=== PATIENT | male | born 1995 | race Two or more races ===

== ENCOUNTER 2024-10-27 19:48 | Emergency (ER) | payer MEDICAID ==
[~2024-10-27] VITALS: Ht 167.6 cm; Wt 86.4 kg
[2024-10-27] MEDS ORDERED: HYDR-3686 PO (21:40)
[2024-10-27] MEDS ORDERED: CEPH-585 PO (21:40)
[2024-10-27] MEDS: hydrOXYzine 25 MG tablet PO ONE (21:59)
[2024-10-27] MEDS: CefTRIAXone 1000mg IM Kit (w/lidocaine diluent) IM ONE (21:59)
[2024-10-27 22:11] VITALS: BP 130/89; PULSE 99; RESP 18; TEMP 98.7; O2SAT 99
== END 2024-10-27 22:11 | disposition home or self-care (01) ==
LOC: ER 19:48
DX: S90.561A Insect bite (nonvenomous), right ankle, initial encounter (principal); L08.9 Local infection of the skin and subcutaneous tissue, unspecified; W57.XXXA Bitten or stung by nonvenomous insect and other nonvenomous arthropods, initial encounter; Y93.89 Activity, other specified; Y92.89 Other specified places as the place of occurrence of the external cause; Y99.8 Other external cause status
CPT/HCPCS: 96372; 99283; J0696; Q0177

== ENCOUNTER 2025-03-27 08:15 | Inpatient (IN) | payer MEDICAID ==
[~2025-03-27] VITALS: Ht 167.6 cm; Wt 81.5 kg
--- NOTE | 2025-03-27 08:38 | ELECTROCARDIOGRAPH REPORT ---
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
[2025-03-27 08:51] LABS: LEUKOCYTE ESTERASE ,URINE NEGATIVE (Neg); NITRITES, URINE NEGATIVE (Neg); OCCULT BLOOD,URINE NEGATIVE (Neg)
--- NOTE | 2025-03-27 09:03 | Physician Documentation ---
History of Present Illness General Chief Complaint: ETOH Withdrawl Stated Complaint: ALCOHOL WITHDRAWAL WITH CP Time Seen by MD: 08:46 Mode of Arrival: POV History of Present Illness Initial Comments The patient is a 30-year-old male who presents here for treatment of alcohol withdrawal. He feels tremulous and pins and needles. He has been drinking on a daily basis since he was about 16 years old. His last drink was this morning. Medication Reconciliation Allergies: Coded Allergies: No Known Allergies (Unverified , 10/27/24) Review of Systems ROS Constitutional: Denies chills, fatigue, fever, weight gain or weight loss. HEENT: Denies hearing loss, sinus pressure or visual changes. Respiratory: Denies cough, shortness of breath or wheezing. Cardiovascular: Denies chest pain, pain while walking (claudication), edema or palpitations. Gastrointestinal: Denies abdominal pain, blood in stool, constipation, di arrhea, heartburn, loss of appetite, nausea or vomiting. Genitourinary: Denies painful urination (dysuria), excessive amount of urine (polyuria) or urinary frequency. Metabolic/Endocrine: Denies cold intolerance, heat intolerance, excessive thirst (polydipsia) or excessive hunger (polyphagia). Neurological: Subjective tremulousness Psychiatric: Anxiety Integumentary: Denies breast discharge, breast lump, hives, mole change(s), rash or skin lesion. Musculoskeletal: Denies back pain, joint pain, joint swelling or neck pain. Hematologic: Denies easily bleeding, easily bruises, lymphedema or issues with blood clots. Immunologic: Denies food allergies or seasonal allergies. Physical Exam Physical Exam Vital Signs: Temperature: 98.3, Source: Oral, Heart Rate: 89, Respiratory Rate: 18, BP: 150/101, Pulse Oximetry: 97, Weight: 81.500 Oxygen Flow Rate: 0 Physical Exam Physical Exam Vitals and nursing note reviewed. Constitutional: General: Patient is awake, alert, oriented x 4 in no acute distress and well appearing. Speech is clear and lucid. Appearance: Normal appearance. Patient is not ill-appearing, toxic-appearing or diaphoretic. HENT: Head: Normocephalic and atraumatic. Mouth/Throat: Mouth: Mucous membranes are moist. Pharynx: Oropharynx is clear. Eyes: General: No scleral icterus. Extraocular Movements: Extraocular movements intact. Pupils: Pupils are equal, round, and reactive to light. Neck: Supple, no Kernig or Brudzinski sign. Cardiovascular: Rate and Rhythm: Normal rate and regular rhythm. Heart sounds: No murmur heard. Pulmonary: Effort: No respiratory distress. Breath sounds: No wheezing, rhonchi or rales. Abdominal: General: There is no distension. Palpations: There is no fluid wave, hepatomegaly or mass. Tenderness: There is no abdominal tenderness. There is no guarding. Musculoskeletal: General: No swelling or deformity. Skin: Coloration: Skin is not jaundiced. Findings: No erythema or rash. Neurological: Mental Status: Patient is alert. CIWA score is 16. Progress Results/Orders Results/Orders Orders - TACHO GIVENS MD Phenobarbital Inj (Phenobarbital Inj.) (03/27/25 10:04) Page Hospitalist (03/27/25 10:04) Normal Saline 1000ml (0.9% Sodium Chlori (03/27/25 10:10) Completed Orders - TACHO GIVENS MD Electrocardiogram (03/27/25 08:21) Cbc/Diff (03/27/25 08:21) BMP (03/27/25 08:21) Lipase (03/27/25 08:21) CMP (03/27/25 08:21) LA (03/27/25 08:48) Drug Screen, Urine (03/27/25 08:59) Ua W/Microscopic, Cult If Ind (03/27/25 08:30) Ethanol (03/27/25 08:30) MG (03/27/25 08:30) Vital Signs 03/27/25 03/27/25 03/27/25 03/27/25 08:15 : 08:30 09:27 Temp 98.3 98.3 98.3 Pulse 68 89 75 Resp 16 18 20 B/P (MAP) 162/100 150/101 (117) 137/86 (103) Pulse Ox 98 97 98 O2 Flow Rate 0 0 0 Laboratory Tests Test 03/27/25 08:30 03/27/25 09:23 03/27/25 09:25 White Blood Count 6.5 Red Blood Count 5.01 Hemoglobin 16.9 Hematocrit 47.0 Mean Corpuscular Volume 93.8 Mean Corpuscular Hemoglobin 33.8 H Mean Corpuscular Hemoglobin Concent 36.0 Red Cell Distribution Width 14.9 H Platelet Count 243 Mean Platelet Volume 6.8 L Neutrophils (%) (Auto) 69.3 Lymphocytes (%) (Auto) 19.3 L Monocytes (%) (Auto) 9.7 Eosinophils (%) (Auto) 0.8 Basophils (%) (Auto) 0.9 Neutrophils # (Auto) 4.5 Lymphocytes # (Auto) 1.2 Monocytes # (Auto) 0.6 Eosinophils # (Auto) 0.0 Basophils # (Auto) 0.1 CBC Comment Urine Specimen Description Voided Urine Color Yellow Urine Clarity Clear Urine pH 8.0 Urine Specific Davis 1.020 Urine Protein Trace Urine Glucose (UA) Negative Urine Ketones Negative Urine Occult Blood Negative Urine Nitrite Negative Urine Bilirubin Negative Urine Urobilinogen 0.2 Urine Leukocyte Esterase Negative Urine RBC 0-2 Urine WBC 0-4 Urine Squamous Epithelial Cells None seen Urine Bacteria None seen Urine Culture Indicated Not ind Volume Urine Centrifuged 10 ml Urine Comment Sodium Level 136 Potassium Level 3.8 Chloride Level 98 L Carbon Dioxide Level 26.8 Anion Gap 11 Blood Urea Nitrogen 8 Creatinine 0.78 Estimated GFR/1.73 m2 > 90 BUN/Creatinine Ratio 10.3 Glucose Level 105 H Calcium Level 9.1 Magnesium Level 1.8 Total Bilirubin 1.4 H Aspartate Amino Transf (AST/SGOT) 64 H Alanine Aminotransferase (ALT/SGPT) 58 Alkaline Phosphatase 82 Total Protein 8.8 H Albumin 4.4 Globulin 4.4 H Albumin/Globulin Ratio 1.0 L Lipase 28 Chemistry Comments Ethyl Alcohol Level < 10 Lactic Acid Level 2.7 H Urine Opiates Screen Negative Urine Methadone Screen Negative Urine Fentanyl Screen Negative Urine Barbiturates Screen Negative Urine Phencyclidine Screen Negative Urine Amphetamines Screen Negative Urine Benzodiazepines Screen Negative Urine Cocaine Screen Negative Urine Cannabinoids Screen Negative Drug Screen Comment Medical Decision Making Findings This 30-year-old male presents with symptoms of alcohol withdrawal. His CIWA score is 16. I am starting him on fluids and phenobarbital. He will require admission. Departure Disposition: ADMITTED INPATIENT Admitted to Inpatient Unit: to hospitalist Impression: Primary Impression: Alcohol withdrawal syndrome Condition: Stable Referrals: NO PRIMARY CARE PROVIDER (PCP) Signature Scribe Signature: . Attestation: . TACHO GIVENS MD Mar 27, 2025 09:03
[2025-03-27 09:05] LABS: UA COLLECTION TYPE VOIDED
[2025-03-27 09:06] LABS: CREATININE 0.78 MG/DL (0.60-1.10); TOTAL CARBON DIOXIDE 26.8 MMOL/L (24-32); eCRCL 124 ML/MIN; eGFR > 90 ML/MIN
[2025-03-27 09:07] LABS: SQUAMOUS EPITHELIAL CELL,UR NONE SEEN /LPF (FEW)
[2025-03-27 09:19] LABS: MEAN PLATELET VOLUME 6.8 FL (7.4-10.4); RED CELL DISTRIBUTION WIDTH 14.9 % (11.5-14.5)
[2025-03-27 09:41] LABS: URINE AMPHETAMINE SCREEN NEGATIVE (Neg); URINE BARBITUATE SCREEN NEGATIVE (Neg); URINE BENZODIAZEPINES SCREEN NEGATIVE (Neg); URINE CANNABINOID SCREEN NEGATIVE (Neg); URINE COCAINE SCREEN NEGATIVE (Neg); URINE METHADONE SCREEN NEGATIVE (Neg); URINE OPIATE SCREEN NEGATIVE (Neg); URINE PHENCYCLIDINE SCREEN NEGATIVE (Neg)
[2025-03-27 09:57] LABS: ETHANOL < 10 MG/DL (<10)
[2025-03-27] MEDS: normal saline 1000ml 1,000 ML IV ONE (10:16)
[2025-03-27] MEDS ORDERED: potassium Cl 40MEQ/1/2NS 520ml 520 ML IV PRN (10:20)
[2025-03-27] MEDS ORDERED: haloperidol lactate 5mg/ml inj IM PRN (10:20)
[2025-03-27] MEDS ORDERED: HYDROcodone/acetaminophen 5mg/325mg tablet PO PRN (10:20)
[2025-03-27] MEDS ORDERED: magnesium sulf-water 2g/50mL 50 ML IV PRN (10:20)
[2025-03-27] MEDS ORDERED: magnesium sulf-water 4G/100mL 100 ML IV PRN (10:20)
[2025-03-27] MEDS ORDERED: ondansetron/PF 4mg/2ml inj IV PRN (10:20)
[2025-03-27] MEDS ORDERED: magnesium hydroxide 30ml (MOM) UD suspension PO PRN (10:20)
[2025-03-27] MEDS ORDERED: potassium Cl 20 mEq SR tablet PO PRN (10:20)
[2025-03-27] MEDS ORDERED: HYDROcodone/acetaminophen 10/325mg tab PO PRN (10:20)
[2025-03-27] MEDS ORDERED: mag hydrox/Alum hydrox/simeth 30ml oral suspension PO PRN (10:20)
[2025-03-27] MEDS: thiamine 100mg/ml 2ml inj. IV SCH (10:44)
[2025-03-27] MEDS: diazepam inj 5 MG/ML inj. IV ONE (10:46)
[2025-03-27] MEDS: ringers solution, lacted 1,000 ML IV ONE (10:48)
[2025-03-27] MEDS: ringers solution, lacted 1,000 ML IV SCH (12:06)
--- NOTE | 2025-03-27 12:46 | HISTORY AND PHYSICAL ---
History & Physical Providers to ~ History of Present Illness Reason for Admit\Complaint: alcohol withdrawal, CIWA 16 History of Present Illness Buck Murphy is a 30-year-old male with reported past medical history of prediabetes, hyperlipidemia, fatty liver disease, chronic alcoholism with history of admission to alcohol addiction rehabilitation who presented to the ED with chief complaint of tremor, anxiety after drinking alcohol. Reported last alcohol intake today. He reports associated symptoms of vomiting x 3 days. Patient denies prior UT/CAD, CVA, cardiac arrhythmia, DVT/PE, or GIB. At the time of admission assessment, patient is alert and oriented x 3 and not in acute distress. Patient denies chest pain, palpitations, shortness of breath, abdominal pain, diarrhea, fever, chills, dysuria, melena, hematemesis, hematochezia. He reports 14 year history of alcoholism and reports daily drinking of liquor. Patient is to be admitted for further workups and treatment. Allergies: Coded Allergies: No Known Allergies (Unverified , 10/27/24) Home Medications Home Medications Active Past Medical History Past Medical History Chronic alcoholism Hyperlipidemia Prediabetes Fatty liver disease Past Surgical History Surgical History Comment Appendectomy Past Social History Social History Comment Alcohol: 14 year liquor drinking history Tobacco: E cigarette occasional Illicit drug use: Denies Living situation: Lives at home with a partner ROS ROS Other than positives in HPI, all 14 review of systems are negative Exam Vitals: Vital Signs Date Time Temp Pulse Resp B/P (MAP) Pulse Ox O2 Delivery O2 Flow Rate FiO2 03/27/25 11:55 98.3 62 14 127/79 (95) 97 0 General: A&Ox 3, NAD HEENT: Normocephalic, PERRLA Neck: Supple, trachea midline, no JVD Chest: Clear to auscultation bilaterally Cardiovascular: RRR, S1&S2 Abdomen: Soft and nontender Extremities: No cyanosis/clubbing/or edema Central Nervous System: CN II-XII intact, no focal deficits Musculoskeletal: No paraspinal muscle tenderness, no muscle spasm Skin: Warm and intact Diagnostic Data Last Recorded Lab Results: 03/27/25 0830 03/27/25 0830 Additional Plan Assessment & Plan Alcohol withdrawal DTs Chronic alcoholism Dehydration Hepatic steatosis Hepatomegaly -CIWA 16, lactic acid 2.7, vss, wbc wnl, elevated t.bili and AST, INR 1.1, PLT wnl, albumin wnl, RFT unremarkable, EKG sinus at 80bpm no ST-T abnormalities, US abdomen echogenic liver, wnl CBD -start taper dose Librium, IVF, seizure precaution -substance use navigator/social welfare administrator consult Prediabetes Hyperlipidemia HTN -follow lipid panel, A1c -start losartan, prn hydralazine DVT/VTE prophylaxis: heparin Code status: Full code I spent a total of 35 minutes discussing Advanced Care Planning measures with the patient. Advance care planning: At the time of admission assessment, patient is alert and oriented x3. Discussed with patient the importance of advance care planning in case of emergent situation. We discussed various resuscitative measures/ ACP with the patient at the time of admission. Patient voiced understanding and patient has decided on a full code status. Date of Service: Mar 27, 2025 Billing Provider: DEANA SWIFT Common Visit Codes: [id number] INP/OBS CARE (HIGH) Secondary Visit Codes: 49510-[id number] CARE PLAN 30 MINUTES DEANA SWIFT Mar 27, 2025 12:46
[2025-03-27] MEDS ORDERED: hydrALAZINE 20mg/ml inj. IV PRN (12:50)
[2025-03-27 13:45] VITALS: BP 138/83; PULSE 63; RESP 16; TEMP 98; O2SAT 98
[2025-03-27] MEDS ORDERED: NO HOME MEDS (14:08)
[2025-03-27] MEDS: pantoprazole 40mg Tablet.DR PO ONE (15:13)
--- NOTE | 2025-03-27 15:17 | RADIOLOGY REPORT ---
Technique: Real-time ultrasound imaging of the abdomen was performed with grayscale and color Doppler . Indication: elevated t.bili, alcholism Comparison: None Findings: Liver measures 18.9 cm. It is increased in echogenicity and echotexture without focal mass. Portal v ein is normal in caliber and demonstrates normal hepatopetal flow. Gallbladder demonstrates no evidence for cholelithiasis. There is no pericholecystic fluid. The wall thickness is normal. The common bile duct measures 5 mm. No intrahepatic biliary ductal dilatation. The right kidney measures 11 cm. There is no hydronephrosis or sonographic evidence of nephrolithiasi s. The visualized portion of the pancreas is unremarkable. The visualized portion of the IVC is unremarkable. Impression: Echogenic liver which can be seen with hepatic steatosis, cirrhosis. Hepatomegaly
[2025-03-27 18:00] VITALS: BP 119/79; PULSE 62; RESP 16; TEMP 98.2; O2SAT 99
[2025-03-27 18:47] LABS: INR 1.1 INR
[2025-03-27] MEDS: K and/or MAG REPLACEMENT MC SCH (19:37)
[2025-03-27] MEDS: docusate sod 100mg capsule PO SCH (19:37)
[2025-03-27] MEDS: heparin, porcine 5000 units/ml vial SQ SCH (19:41)
[2025-03-27 20:00] VITALS: RESP 16; O2SAT 99
[2025-03-27 22:00] VITALS: BP 102/65; PULSE 66; RESP 16; TEMP 97.5; O2SAT 98
[2025-03-28 05:34] LABS: MEAN PLATELET VOLUME 6.6 FL (7.4-10.4); RED CELL DISTRIBUTION WIDTH 14.8 % (11.5-14.5)
[2025-03-28 05:54] LABS: CHOL/HDL RATIO 2.4 (0.00-4.99); CREATININE 0.67 MG/DL (0.60-1.10); LDL CHOLESTEROL 60 MG/DL (50-100); TOTAL CARBON DIOXIDE 27.3 MMOL/L (24-32); eCRCL 144 ML/MIN; eGFR > 90 ML/MIN
[2025-03-28 06:00] VITALS: BP 107/54; PULSE 47; RESP 19; TEMP 97.9; O2SAT 97
[2025-03-28] MEDS: potassium Cl 20 mEq SR tablet PO PRN (06:03)
[2025-03-28] MEDS: pantoprazole 40mg Tablet.DR PO SCH (07:32)
[2025-03-28] MEDS: multivitamins, therapeutics tablet PO SCH (07:32)
[2025-03-28] MEDS: folic acid 1mg/0.2ml inj IV SCH (07:32)
[2025-03-28 08:00] VITALS: RESP 19; O2SAT 97
--- NOTE | 2025-03-28 11:43 | RADIOLOGY REPORT ---
CLINICAL INFORMATION: 30 years old, Male; encephalopathy. TECHNIQUE: Axial imaging was obtained through the brain without contrast. Coronal and sagittal reform atted images were obtained, reviewed, and stored. Images were reviewed in brain and bone windows. Al l CT scans at this medical facility are performed using dose modulation techniques as appropriate to a performed exam including the following: Automated exposure control was utilized; adjustment of the MA and/or KV according to patient size; and use of iterative reconstruction technique. CTDIvol = 62.3 1 mGy DLP = 1017.35 mGy-cm COMPARISON: None FINDINGS: There is no acute intracranial hemorrhage. No mass effect or midline shift. The ventricles and sulci are within normal limits in size for age. Basal cisterns are patent. The calvarium is unre markable. Paranasal sinuses and mastoid air cells are clear. IMPRESSION: No CT evidence of acute intracranial abnormality.
--- NOTE | 2025-03-28 15:07 | PROGRESS NOTE ---
Daily Progress Note Providers to CC ~ Antibiotic Timeout Antibiotic Ordered?: No Subjective No acute events overnight. Patient examined at bedside. No new complaints, not in acute distress. Patient denies chest pain, sob, palpitations, abdominal pain, n/v/d. Vss, labs unremarkable. Continued on BZD for DTs. Tremors improving. Objective Vital Signs Date Time Temp Pulse Resp B/P (MAP) Pulse Ox O2 Delivery O2 Flow Rate FiO2 03/28/25 08:00 47 03/28/25 08:00 19 97 Room Air 03/28/25 06:00 97.9 107/54 (71) 03/27/25 13:15 0 Result Diagram: 03/28/2544803/28/25448 Physical Exam General: A&Ox 3, NAD HEENT: Normocephalic, PERRLA Neck: Supple, trachea midline, no JVD Chest: Clear to auscultation bilaterally Cardiovascular: RRR, S1&S2 Abdomen: Soft and nontender Extremities: No cyanosis/clubbing/or edema, b/l hand tremors Central Nervous System: CN II-XII intact, no focal deficits Musculoskeletal: No paraspinal muscle tenderness, no muscle spasm Skin: Warm and intact Coagulation Studies Laboratory Tests Test 03/27/25 18:22 Prothrombin Time 11.3 SECONDS (9.0-12.0) INR International Normalized Ratio 1.1 INR Coagulation Comments Problem\Assessment\Plan Assessment & Plan Alcohol withdrawal DTs Chronic alcoholism Dehydration Hepatic steatosis Hepatomegaly -CIWA 16, lactic acid 2.7, vss, wbc wnl, elevated t.bili and AST, INR 1.1, PLT wnl, albumin wnl, RFT unremarkable, EKG sinus at 80bpm no ST-T abnormalities, US abdomen echogenic liver, wnl CBD -start taper dose Librium, IVF, seizure precaution -substance use navigator/social work assistant consult Prediabetes Hyperlipidemia HTN -LDL 65, TGL 263 -start losartan, prn hydralazine, omega3 DVT/VTE prophylaxis: heparin Code status: Full code Date of Service: Mar 28, 2025 Billing Provider: DEANA SWIFT Common Visit Codes: [id number] INP/OBS CARE(HIGH) DEANA SWIFT Mar 28, 2025 15:07
[2025-03-28] MEDS: OMEGA-3/DHA/EPA/FISH OIL 1 EACH CAPSULE.DR PO ONE (15:30)
[2025-03-28] MEDS: OMEGA-3/DHA/EPA/FISH OIL 1 EACH CAPSULE.DR PO SCH (17:47)
[2025-03-28 18:00] VITALS: BP 119/75; PULSE 74; RESP 14; TEMP 98.2; O2SAT 99
[2025-03-28 20:00] VITALS: RESP 14; O2SAT 99
[2025-03-28 22:00] VITALS: BP 121/70; PULSE 83; RESP 20; TEMP 97.8; O2SAT 98
[2025-03-29 05:30] LABS: MEAN PLATELET VOLUME 7.1 FL (7.4-10.4); RED CELL DISTRIBUTION WIDTH 14.9 % (11.5-14.5)
[2025-03-29 06:00] VITALS: BP 104/60; PULSE 65; RESP 19; TEMP 98.3; O2SAT 98
[2025-03-29 06:00] LABS: CREATININE 0.62 MG/DL (0.60-1.10); TOTAL CARBON DIOXIDE 27.2 MMOL/L (24-32); eCRCL 156 ML/MIN; eGFR > 90 ML/MIN
[2025-03-29] MEDS ORDERED: LOSA25TA41 PO (07:11)
[2025-03-29] MEDS ORDERED: CHLO25CA10 PO (07:11)
[2025-03-29] MEDS ORDERED: OMEG1CAP46 PO (07:11)
[2025-03-29 08:00] VITALS: RESP 16; O2SAT 98
[2025-03-29 10:00] VITALS: BP 122/75; PULSE 71; RESP 16; TEMP 98.1; O2SAT 98
--- NOTE | 2025-03-29 11:01 | DISCHARGE SUMMARY ---
Discharge Summary Providers to CC ~ Discharge Summary Admission Diagnosis: Alcohol withdrawal, dehydration Hospital Course DATE OF ADMISSION: 03/27/25 DATE OF DISCHARGE: 03/29/25 Discharge Diagnosis\Comment: Alcohol withdrawal DTs Chronic alcoholism Dehydration Hepatic steatosis Hepatomegaly Prediabetes Hyperlipidemia HTN Operations\Procedures: None Consultants: None Complications: None Condition on DC: Stable New Medications: Chlordiazepoxide Hcl (Librium) 25 Mg Capsule 25 MG PO DIRECTED for 5 Days, #22 CAP 0 Refills Take 2 capsules by mouth every 6 hours x 1 day, then take 2 capsules every 8 hours x 1 day, then take 2 capsules every 12 hours x 1 day, then take 2 capsules at bedtime x 2 days. Losartan Potassium (Losartan Potassium) 25 Mg Tablet 25 MG PO DAILY for 90 Days, #90 TAB [place]-3 Fatty Acids/Fish Oil ([place] 3 1,000 mg Softgel) 300 Mg-1,000 Mg Capsule 1 CAP PO DAILY for 90 Days, #90 CAP Continued Medications: Home Med List (No Home Medications) Each Discharge Summary: History of Present Illness Buck Murphy is a 30-year-old male with reported past medical history of prediabetes, hyperlipidemia, fatty liver disease, chronic alcoholism with history of admission to alcohol addiction rehabilitation who presented to the ED with chief complaint of tremor, anxiety after drinking alcohol. Reported last alcohol intake today. He reports associated symptoms of vomiting x 3 days. Patient denies prior SD/CAD, CVA, cardiac arrhythmia, DVT/PE, or GIB. At the time of admission assessment, patient is alert and oriented x 3 and not in acute distress. Patient denies chest pain, palpitations, shortness of breath, abdomi nal pain, diarrhea, fever, chills, dysuria, melena, hematemesis, hematochezia. He reports 14 year history of alcoholism and reports daily drinking of liquor. Patient is to be admitted for further workups and treatment. Hospital Course Findings were notable for CIWA score of 16, elevated lactic acid at 2.7, elevated t.bili, transaminitis, ultrasound of abdomen revealing echogenic liver with normal common bile duct. Pertinent negative findings were normal lipase, INR of 1.1, unremarkable platelets, albumin, and renal function. EKG sinus at [address]-T abnormalities. Patient was placed on seizure precaution and was treated with taper dose Librium and intravenous fluids. With the start of treatment, initially presenting signs of DTs improved significantly. Patient feels ready to be discharged. Patient did not experience further complications throughout the entire hospital stay and remained clinically and hemodynamically stable. Patient was seen and examined on the day of discharge. On day of discharge, vss and labs unremarkable. All labs, diagnostic workups, discharge plan discussed with patient in details during visit before discharge. All questions and concerns answered to the best of my professional knowledge. Patient is to be discharged to home to self with tapered dose Librium and to follow-up with PCP within 2 weeks. Physical Exam General: A&Ox 3, NAD HEENT: Normocephalic, PERRLA Neck: Supple, trachea midline, no JVD Chest: Clear to auscultation bilaterally Cardiovascular: RRR, S1&S2 GI: Soft and nontender Extremities: No cyanosis/clubbing/or edema [employer]: CN II-XII intact, no focal deficits Musculoskeletal: No paraspinal muscle tenderness, no muscle spasm Skin: Warm and intact *Problems/Diagnosis: (1) Alcohol withdrawal syndrome Status: Acute Total Time Spent on D/C: > 30 Minutes Date of Service: Mar 29, 2025 Billing Provider: DEANA SWIFT Common Visit Codes: 00317-[id number] DISCH DAY >30min DEANA SWIFT Mar 29, 2025 11:01
== END 2025-03-29 10:00 | disposition home or self-care (01) | DRG 775 ==
LOC: ER 08:15 → ED HOLD 10:35 → EDBEDREQ 11:03 → ORTHO 4S 13:30
PROVIDERS: ADMIT Nurse Practitioner Family; ATTEND Nurse Practitioner Family
DX: F10.231 Alcohol dependence with withdrawal delirium (principal); K76.0 Fatty (change of) liver, not elsewhere classified; R16.0 Hepatomegaly, not elsewhere classified; E78.5 Hyperlipidemia, unspecified; E86.0 Dehydration; F41.9 Anxiety disorder, unspecified; I10 Essential (primary) hypertension; R73.03 Prediabetes; Y90.9 Presence of alcohol in blood, level not specified; E87.20 Acidosis, unspecified; Z79.899 Other long term (current) drug therapy
CPT/HCPCS: 36415; 70450; 76700; 80053; 80061; 80305; 80320; 81001; 82948; 83036; 83605; 83690; 83735; 85025; 85610; 87081; 93005; 96374; 97110; 97116; 97161; 99285; G0378; J1644; J2560; J3360; J3411; J3490; J7030; J7120